=== PATIENT | female | born 1955 ===

== ENCOUNTER → 2018-04-22 | Outpatient (CLI) | payer BC ==
[2018-04-22 09:40] LABS: Basophils # (auto) 0.1 uL; Basophils % (auto) 0.9 % (0.0-2.0); Eosinophils # (auto) 0.1 uL; Eosinophils % (auto) 0.8 % (0.0-7.0); Hematocrit 43.2 % (36.0-46.0); Hemoglobin 14.5 g/dL (12.2-16.2); Lymphocytes # (auto) 0.8 uL; Mean Corpuscular Hemoglobin 28.9 pg (28.0-32.0); Mean Corpuscular Hgb Conc. 33.5 g/dL (32.0-36.0); Mean Corpuscular Volume 86.4 fL (80.0-100.0); Monocytes # (auto) 0.4 uL; Monocytes % (auto) 5.9 % (0.0-12.0); Neutrophils # (auto) 5.6 uL; Neutrophils % (auto) 80.4 % (37.0-80.0); Platelet Count (auto) 145 10^3/uL (140-450); Red Blood Cells 5.01 10^6/uL (4.0-5.20); Red Cell Distribution Width 13.4 % (11.8-14.3)
[2018-04-22 09:46] LABS: Albumin 3.9 g/dL (3.4-5.0); BUN/Creatinine Ratio 18.8; Bilirubin, Total 0.7 mg/dL (0.2-1.0); Calcium 8.6 mg/dL (8.5-10.1); Total Protein 7.1 g/dL (6.4-8.2)
== END | disposition home or self-care (01) ==
LOC: LAB 08:56
PROVIDERS: ATTEND Internal Medicine
DX: Z12.11 Encounter for screening for malignant neoplasm of colon (principal); Z00.01 Encounter for general adult medical examination with abnormal findings; F41.8 Other specified anxiety disorders
CPT/HCPCS: 36415; 80053; 80061; 82270; 82274; 82306; 84443; 85025

== ENCOUNTER 2018-11-19 14:02 | Emergency (ER) | payer BC ==
[~2018-11-19] VITALS: Ht 172.7 cm; Wt 95.3 kg
[2018-11-19 14:10] VITALS: BP 128/76
[2018-11-19] MEDS ORDERED: cefTRIAXone SOD 1,000 MG VL IM ONE (15:45)
== END 2018-11-19 16:09 | disposition home or self-care (01) ==
LOC: ER 14:02
DX: K04.7 Periapical abscess without sinus (principal); G89.29 Other chronic pain; M54.5 Low back pain
CPT/HCPCS: 96372; 99283; J0696